=== PATIENT | female | born 1995 | race Caucasian/White ===

== ENCOUNTER 2018-12-19 16:11 | Emergency (ER) | payer OTHER ==
[~2018-12-19] VITALS: Ht 154.9 cm; Wt 71.4 kg
--- NOTE | 2018-12-19 16:23 | NUR ---
Pt reports 2 days R sd ABD pain. Denies dysuria, no n/v, denies chance of . Took laxatives because she thought she was constipated. Caused loose stools but pain did not improve. Urine being collected, ER MD man pending.
[2018-12-19 16:51] LABS: BASOPHILS # (AUTO) 0.05 x10^3/uL (0-0.1); BASOPHILS % (AUTO) 1 % (0-1); EOSINOPHILS % (AUTO) 1 % (1-7); LYMPHOCYTES # (AUTO) 2.39 x10^3/uL (1-3.4); LYMPHOCYTES % (AUTO) 28 % (22-44); MD NO; MEAN CORPUSCULAR HEMOGLOBIN 30.4 pg (27.0-34.8); MEAN CORPUSCULAR HGB CONC 33.9 g/dL (32.4-35.8); MEAN CORPUSCULAR VOLUME 89.6 fL (80-100); MEAN PLATELET VOLUME 6.9 fL (7.4-10.4); MONOCYTES # (AUTO) 0.85 x10^3/uL (0.2-0.8); MONOCYTES % (AUTO) 10 % (2-9); NEUTROPHILS # (AUTO) 5.31 x10^3/uL (1.8-6.8); NEUTROPHILS % (AUTO) 61 % (42-75); PLATELET COUNT 299 x10^3/uL (130-400); RED BLOOD COUNT 4.99 x10^6/uL (3.82-5.3); RED CELL DISTRIBUTION WIDTH 12.4 % (9.6-15.2)
[2018-12-19] MEDS ORDERED: SODIUM CHLORIDE FLUSH 10ML SYR IVF ONE (17:00)
[2018-12-19] MEDS ORDERED: ONDANSETRON 2MG/ML, 2ML IVPush ONE (17:00)
[2018-12-19] MEDS ORDERED: MORPHINE SULFATE 4 MG/ML, 1ML IVPush PRN (17:00)
[2018-12-19 17:03] LABS: ALANINE AMINOTRANSFERASE 35 U/L (12-78); ALBUMIN 3.8 g/dL (3.4-5.0); ANION GAP 9 mmol/L (5-15); CALCIUM 8.9 mg/dL (8.5-10.1); CHLORIDE 103 mmol/L (98-107); CREATININE 0.87 mg/dL (0.55-1.02)
[2018-12-19 17:07] LABS: ALKALINE PHOSPHATASE 55 U/L (45-117); BILIRUBIN,TOTAL 0.8 mg/dL (0.2-1.0); TOTAL PROTEIN 7.6 g/dL (6.4-8.2)
--- NOTE | 2018-12-19 17:16 | NUR ---
TO ULTRASOUND VIA [facility]
[2018-12-19 17:21] LABS: CULTURE INDICATED? YES; MICROSCOPIC INDICATED
[2018-12-19] MEDS ORDERED: ONDANSETRON 2MG/ML, 2ML ONE (17:59)
[2018-12-19] MEDS ORDERED: MORPHINE SULFATE 4 MG/ML, 1ML ONE (18:00)
--- NOTE | 2018-12-19 18:09 | NUR ---
UPON RETURN FROM RADIOLOGY, MEDICATED FOR PAIN. DIGITAL ACCOUNT DIRECTOR AT BEDSIDE PREPARING TO DO AN ADDED ON STUDY
[2018-12-19 19:27] VITALS: BP 115/64
--- NOTE | 2018-12-19 19:27 | NUR ---
DISCHARGE INSTRUCTIONS GIVEN WITH DIET DISCUSSED. AMBULATED TO DISCHARGE WINDOW, STEADY GAIT
== END 2018-12-19 19:29 | disposition home or self-care (01) ==
LOC: ED 19:19
DX: R10.31 Right lower quadrant pain (principal); R10.11 Right upper quadrant pain
CPT/HCPCS: 36415; 76700; 76830; 80053; 81001; 83690; 84703; 85025; 87086; 96374; 96375; 99284; J2405; J2270